=== PATIENT | female | born 1985 | race Caucasian/White ===

== ENCOUNTER 2021-02-07 07:22 | Inpatient (IN) | payer OTHER ==
[~2021-02-07] VITALS: Ht 167.6 cm; Wt 120.9 kg
[2021-02-07] MEDS ORDERED: PLEASE ENTER ALLERGIES MC SCH (11:30)
[2021-02-07] MEDS ORDERED: LACTATED RINGERS 1,000 ML IV SCH (11:30)
[2021-02-07] MEDS ORDERED: TERBUTALINE 1 MG/ML, 1ML SQ ONE (11:30)
[2021-02-07] MEDS ORDERED: PLEASE ENTER HEIGHT AND WEIGHT MC SCH (11:30)
[2021-02-07 11:40] LABS: BASOPHILS % (AUTO) 0 % (0-1); EOSINOPHILS % (AUTO) 0 % (1-7); LYMPHOCYTES % (AUTO) 20 % (22-44); MEAN CORPUSCULAR HEMOGLOBIN 29.3 pg (27.0-34.8); MEAN CORPUSCULAR HGB CONC 33.3 g/dL (32.4-35.8); MEAN PLATELET VOLUME 9.2 fL (7.4-10.4); MONOCYTES % (AUTO) 7 % (2-9); NEUTROPHILS % (AUTO) 72 % (42-75); PLATELET COUNT 299 x10^3/uL (130-400); RED BLOOD COUNT 3.97 x10^6/uL (3.82-5.3); RED CELL DISTRIBUTION WIDTH 13.8 % (9.6-15.2)
[2021-02-07 11:44] LABS: MD NO
[2021-02-07] MEDS ORDERED: NEWBORN KIT ONE (11:44)
[2021-02-07] MEDS ORDERED: TERBUTALINE 1 MG/ML, 1ML ONE (11:44)
[2021-02-07] MEDS ORDERED: OXYTOCIN 30U/ 0.9% NaCL 500ML 500 ML ONE (11:44)
[2021-02-07] MEDS ORDERED: MISOPROSTOL 25 MCG TABLET ONE (14:50)
[2021-02-07] MEDS ORDERED: FENTANYL PF 100 MCG/2ML IV PRN (15:00)
[2021-02-07] MEDS ORDERED: D5%-LACTATED RINGERS 1,000 ML IV SCH (15:00)
[2021-02-07] MEDS ORDERED: MISOPROSTOL 25 MCG TABLET VG PRN (15:00)
[2021-02-07] MEDS ORDERED: ONDANSETRON 2MG/ML, 2ML IVPush PRN (15:00)
[2021-02-07] MEDS ORDERED: TERBUTALINE 1 MG/ML, 1ML IVPush PRN (15:00)
[2021-02-07] MEDS ORDERED: TERBUTALINE 1 MG/ML, 1ML SQ PRN (15:00)
[2021-02-07] MEDS ORDERED: OXYTOCIN 30U/ 0.9% NaCL 500ML 500 ML IV ONE (15:00)
[2021-02-07] MEDS ORDERED: OXYTOCIN 30U/ 0.9% NaCL 500ML 500 ML IV PRN (19:30)
[2021-02-07] MEDS: LACTATED RINGERS 1,000 ML IV SCH (20:53)
[2021-02-08] MEDS: FENTANYL PF 100 MCG/2ML IVPush PRN ×3 (09:22→12:07)
[2021-02-08] MEDS: LACTATED RINGERS 1,000 ML IV SCH (09:25)
[2021-02-08] MEDS ORDERED: FENTANYL/BUPIV./NS/PF 250 ML EPIDCONT ONE (12:57)
[2021-02-08] MEDS ORDERED: LACTATED RINGERS 1,000 ML IV SCH (16:30)
[2021-02-08] MEDS ORDERED: EPHEDRINE 50 MG/ML, 1ML IVPush PRN (16:30)
[2021-02-08] MEDS ORDERED: NALOXONE 0.4 MG/ML, 1ML IVPush PRN (16:30)
[2021-02-08] MEDS ORDERED: FENTANYL/BUPIV./NS/PF 250 ML EPIDCONT SCH (16:30)
[2021-02-08] MEDS ORDERED: LACTATED RINGERS 1,000 ML IVBOLUS PRN (16:30)
[2021-02-09] MEDS ORDERED: METOCLOPRAMIDE 5 MG/ML, 2ML ONE (12:22)
[2021-02-09] MEDS ORDERED: SODIUM CITRATE/CITRIC ACID 15 ML UDC ONE (12:22)
[2021-02-09] MEDS ORDERED: LACTATED RINGERS 1,000 ML IVBOLUS ONE (12:30)
[2021-02-09] MEDS ORDERED: PROMETHAZINE 25 MG/ML, 1ML IV PRN (12:30)
[2021-02-09] MEDS ORDERED: LABETALOL 5MG/ML, 20ML IV PRN (12:30)
[2021-02-09] MEDS ORDERED: SODIUM CITRATE/CITRIC ACID 30 ML UDC PO ONE (12:30)
[2021-02-09] MEDS ORDERED: AZITHROMYCIN 500 MG in SODIUM CHLORIDE 0.9% 250 ML IV ONE (12:30)
[2021-02-09] MEDS ORDERED: MEPERIDINE/PF 25MG/0.5ML IVPush PRN (12:30)
[2021-02-09] MEDS ORDERED: ALBUTEROL SULFATE 2.5 MG/3 ML NPPB PRN (12:30)
[2021-02-09] MEDS ORDERED: FENTANYL PF 100 MCG/2ML IV PRN (12:30)
[2021-02-09] MEDS ORDERED: MIDAZOLAM 1 MG/ML, 2ML IV PRN (12:30)
[2021-02-09] MEDS: LACTATED RINGERS 1,000 ML IV SCH ×3 (12:30→22:00)
[2021-02-09] MEDS ORDERED: METOCLOPRAMIDE 5 MG/ML, 2ML IV ONE (12:30)
[2021-02-09] MEDS ORDERED: HYDROcodone/APAP 7.5-325MG/15ML UDC PO PRN (12:30)
[2021-02-09] MEDS ORDERED: HYDROmorphone 2 MG/ML, 1ML IVPush PRN (12:30)
[2021-02-09] MEDS ORDERED: METOPROLOL 1 MG/ML, 5ML IV PRN (12:30)
[2021-02-09] MEDS ORDERED: hydrALAzine 20 MG/ML, 1ML IV PRN (12:30)
[2021-02-09] MEDS ORDERED: OXYcodone 5 MG/5 ML ORAL.SOL UDC PO PRN (12:30)
[2021-02-09] MEDS ORDERED: EPHEDRINE 50 MG/ML, 1ML IVPush PRN (12:30)
[2021-02-09] MEDS ORDERED: ONDANSETRON 2MG/ML, 2ML IVPush PRN (12:30)
[2021-02-09] MEDS ORDERED: CEFAZOLIN 1,000 MG ONE (12:34)
[2021-02-09] MEDS ORDERED: FENTANYL PF 100 MCG/2ML ONE ×2 (12:34→12:36)
[2021-02-09] MEDS ORDERED: EPHEDRINE 50 MG/ML, 1ML ONE (12:34)
[2021-02-09] MEDS ORDERED: KETOROLAC 30 MG/1 ML ONE (12:34)
[2021-02-09] MEDS ORDERED: PHENYLEPHRINE 10 MG/ML ONE (12:34)
[2021-02-09] MEDS ORDERED: PROPOFOL 10 MG/ML, 20ML ONE (12:34)
[2021-02-09] MEDS ORDERED: ONDANSETRON 2MG/ML, 2ML ONE (12:34)
[2021-02-09] MEDS ORDERED: OXYTOCIN 10 UNITS/ML, 1ML ONE (12:34)
[2021-02-09] MEDS ORDERED: SUCCINYLCHOLINE 20 MG/ML, 10ML ONE (12:34)
[2021-02-09] MEDS ORDERED: DEXAMETHASONE 4 MG/ML, 1ML ONE (12:34)
[2021-02-09] MEDS ORDERED: morphine SULFATE/PF 0.5 MG/ML, 10ML ONE (13:01)
[2021-02-09] MEDS ORDERED: MISOPROSTOL 200 MCG TABLET ONE (13:22)
[2021-02-09] MEDS: OXYTOCIN 30U/ 0.9% NaCL 500ML 500 ML IV SCH (13:45)
[2021-02-09] MEDS ORDERED: MISOPROSTOL 200 MCG TABLET PR PRN (14:00)
[2021-02-09] MEDS ORDERED: SIMETHICONE 80 MG CHEW TAB PO PRN (14:00)
[2021-02-09] MEDS ORDERED: ACETAMINOPHEN 325 MG TABLET PO PRN ×2 (14:00)
[2021-02-09] MEDS ORDERED: METHYLERGONOVINE 0.2 MG/ML IM PRN (14:00)
[2021-02-09] MEDS ORDERED: ONDANSETRON 2MG/ML, 2ML IV PRN (14:00)
[2021-02-09] MEDS ORDERED: IBUPROFEN 600 MG TABLET PO PRN (14:00)
[2021-02-09] MEDS: KETOROLAC 30 MG/1 ML IV SCH ×2 (14:00→19:46)
[2021-02-09] MEDS ORDERED: METOCLOPRAMIDE 5 MG/ML, 2ML IV PRN (14:00)
[2021-02-09] MEDS ORDERED: CARBOPROST TROMETHAMINE 250 MCG/ML, 1ML IM PRN (14:00)
[2021-02-09 16:10] VITALS: BP 117/77
[2021-02-09 19:05] VITALS: BP 126/78
[2021-02-09] MEDS: DOCUSATE 100 MG CAPSULE PO PRN (19:46)
[2021-02-09 21:02] LABS: BASOPHILS % (AUTO) 0 % (0-1); EOSINOPHILS % (AUTO) 0 % (1-7); LYMPHOCYTES % (AUTO) 9 % (22-44); MEAN CORPUSCULAR HEMOGLOBIN 29.2 pg (27.0-34.8); MEAN CORPUSCULAR HGB CONC 32.7 g/dL (32.4-35.8); MONOCYTES % (AUTO) 4 % (2-9); NEUTROPHILS % (AUTO) 87 % (42-75); PLATELET COUNT 290 x10^3/uL (130-400); RED BLOOD COUNT 3.58 x10^6/uL (3.82-5.3); RED CELL DISTRIBUTION WIDTH 14.2 % (9.6-15.2)
[2021-02-09 21:07] LABS: MD NO
[2021-02-09 23:00] VITALS: BP 125/82
[2021-02-10] MEDS: ENOXAPARIN 40 MG/0.4 ML SQ SCH (01:35)
[2021-02-10] MEDS: KETOROLAC 30 MG/1 ML IV SCH ×4 (01:48→19:40)
[2021-02-10] MEDS: OXYcodone/APAP 5/325MG TABLET PO PRN ×6 (02:58→20:49)
[2021-02-10 03:45] VITALS: BP 106/70
[2021-02-10] MEDS: LACTATED RINGERS 1,000 ML IV SCH ×3 (06:00→06:30)
[2021-02-10] MEDS: OXYTOCIN 30U/ 0.9% NaCL 500ML 500 ML IV SCH ×2 (06:30)
[2021-02-10 07:10] VITALS: BP 99/62
[2021-02-10] MEDS: DOCUSATE 100 MG CAPSULE PO PRN ×2 (07:51→19:41)
[2021-02-10] MEDS: PRENATAL VIT/IRON/FA 1 EACH TABLET PO SCH (07:51)
[2021-02-10 12:00] VITALS: BP 107/70
[2021-02-10 20:00] VITALS: BP 114/77
[2021-02-11] MEDS: ENOXAPARIN 40 MG/0.4 ML SQ SCH (00:25)
[2021-02-11] MEDS: OXYcodone/APAP 5/325MG TABLET PO PRN ×3 (00:36→08:42)
[2021-02-11] MEDS: KETOROLAC 30 MG/1 ML IV SCH ×2 (02:08→08:42)
[2021-02-11 08:00] VITALS: BP 105/72
[2021-02-11] MEDS ORDERED: IBUP-1222 PO (08:22)
[2021-02-11] MEDS ORDERED: OXYC1TAB14 PO (08:22)
[2021-02-11] MEDS: DOCUSATE 100 MG CAPSULE PO PRN (08:42)
[2021-02-11] MEDS: PRENATAL VIT/IRON/FA 1 EACH TABLET PO SCH (08:42)
[2021-02-11] MEDS ORDERED: MEASLES,MUMPS&RUBELLA VACC/PF 0.5 ML SQ-VACC ONE ×2 (09:06→09:30)
[2021-02-11] MEDS ORDERED: IBUPROFEN 600 MG TABLET PO PRN (14:00)
== END 2021-02-11 11:15 | disposition home or self-care (01) | DRG 788 ==
LOC: LDIP 10:28 → 2NW 02-09 15:50
PROVIDERS: ADMIT Obstetrics & Gynecology; ATTEND Obstetrics & Gynecology
PROC: 10D00Z1 Extraction of Products of Conception, Low, Open Approach (ICD-10-PCS; principal; 2021-02-09)
PROC: 3E0234Z Introduction of Serum, Toxoid and Vaccine into Muscle, Percutaneous Approach (ICD-10-PCS; 2021-02-11)
DX: O32.9XX0 Maternal care for malpresentation of fetus, unspecified, not applicable or unspecified (principal); E66.9 Obesity, unspecified; O99.214 Obesity complicating childbirth; Z20.822 Contact with and (suspected) exposure to COVID-19; Z37.0 Single live birth; Z3A.39 39 weeks gestation of pregnancy; Z80.0 Family history of malignant neoplasm of digestive organs; Z80.3 Family history of malignant neoplasm of breast; Z83.3 Family history of diabetes mellitus; Z23 Encounter for immunization
CPT/HCPCS: 36415; J7121; 59412; 85025; 86592; 86850; 86900; 87635; 90707; G0378; J0456; J0690; J1100; J1650; J1885; J2274; J2405; J2704; J3010; J0330; J2370; J2590; J2765; J3105; J7050; J7120